=== PATIENT | female | born 2000 | race Caucasian/White ===

== ENCOUNTER 2021-06-21 05:53 | Inpatient (IN) ==
[2021-06-21] MEDS ORDERED: Lidocaine 1% 20 ML MDV INFILT PRN (06:02)
[2021-06-21] MEDS ORDERED: *HR* Nalbuphine 10 MG/ML AMPUL IV PRN (06:02)
[2021-06-21] MEDS ORDERED: Famotidine 20 MG/2 ML VIAL IVP PRN (06:02)
[2021-06-21] MEDS ORDERED: Naloxone 0.4 MG/ML INJ IVP PRN ×2 (06:02→09:59)
[2021-06-21] MEDS ORDERED: Metoclopramide 10 MG/2 ML VIAL IVP PRN (06:02)
[2021-06-21] MEDS ORDERED: EPHEDrine 50 MG/ML VIAL IVP PRN ×2 (06:13→09:59)
[2021-06-21] MEDS ORDERED: Epidural Premix (fent/bupiv) 110 ML EP SCH ×2 (06:15→10:00)
[2021-06-21] MEDS ORDERED: miSOPROStoL 25 MCG TABLET PO SCH (07:00)
[2021-06-21 07:15] LABS: Basophils % 0.3 %; Eosinophils # 0.1 K/mcL (0.0-0.6); Eosinophils % 0.5 %; Hematocrit 38.8 % (35.3-44.9); Hemoglobin 12.6 g/dL (11.5-15.4); Immature Granulocytes % 0.4 % (0-4); Lymphocytes # 1.4 K/mcL (0.6-4.6); Lymphocytes % 12.9 %; Mean Corpuscular HGB Conc 32.5 g/dL (31.6-35.5); Mean Corpuscular Hemoglobin 26.4 pg (28.0-33.3); Mean Corpuscular Volume 81.2 fL (83.0-100.0); Mean Platelet Volume 11.3 fL (9.4-12.4); Monocytes # 0.6 K/mcL (0.0-1.3); Neutrophils # 8.6 K/mcL (1.6-8.9); Platelet Count 193 K/mcL (140-400); Red Blood Count 4.78 M/mcL (3.82-4.97); Red Cell Distribution Width 13.9 % (11.5-14.5); Segmented Neutrophils % 79.9 %; White Blood Count 10.7 K/mcL (4.3-11.1)
[2021-06-21 07:44] LABS: Influenza A PCR Negative (Negative); Influenza B PCR Negative (Negative); Resp. Syncytial Virus PCR Negative (Negative)
[2021-06-21 07:45] LABS: SARS-CoV-2 by PCR (In House) Negative (Negative)
[2021-06-21] MEDS: Ringers Solution, Lactated 1,000 ML IVC SCH ×4 (07:48→17:27)
[2021-06-21 09:27] LABS: Amphetamine Screen,Urine Negative ng/mL (Cutoff=1000); Barbiturate Screen,Urine Negative ng/mL (Cutoff=200); Benzodiazepines Screen,Urine Negative ng/mL (Cutoff=200); Cannabinoid Screen,Urine Negative ng/mL (Cutoff = 50); Cocaine Screen,Urine Negative ng/mL (Cutoff= 300); Opiate Screen,Urine Negative ng/mL (Cutoff=300); Phencyclidine Screen,Urine Negative ng/mL (Cutoff=25)
[2021-06-21] MEDS ORDERED: *HR* FentaNYL (PF) 100 MCG/2 ML VIAL EP ONE (09:59)
[2021-06-21] MEDS ORDERED: Ropivacaine/PF 0.2% 20 ML VIAL EP ONE (09:59)
[2021-06-21] MEDS ORDERED: Ondansetron 4 MG/2 ML VIAL IVP PRN (09:59)
[2021-06-21] MEDS ORDERED: Ropivacaine/PF 0.2% 20 ML VIAL ONE (11:52)
[2021-06-22] MEDS ORDERED: Lanolin 7 G OINT...G. TP PRN (01:26)
[2021-06-22] MEDS ORDERED: Benzocaine/Menthol 56 GM AEROSOL SPRAY TP PRN (01:26)
[2021-06-22] MEDS ORDERED: Oxytocin 20 units/ LR 1000 mL 20 UNIT/1,000 ML BAG IVC SCH (01:26)
[2021-06-22] MEDS ORDERED: Ondansetron ODT 4 MG TAB.RAPDIS SL PRN (01:26)
[2021-06-22] MEDS: Ibuprofen 600 MG TABLET PO SCH ×2 (02:49→17:03)
[2021-06-22] MEDS: Acetaminophen 325 MG TABLET PO SCH ×3 (02:49→17:03)
[2021-06-22 08:52] VITALS: O2SAT 98
[2021-06-22] MEDS ORDERED: Prenatal Vit/FA 1 EACH TABLET PO SCH (09:00)
[2021-06-22 15:35] VITALS: BP 103/57; PULSE 82; TEMP 97.8
== END 2021-06-22 19:15 | disposition home or self-care (01) | DRG 806 ==
LOC: 1NENULAB 05:53 → 1NENUOBS 06-22 03:39
PROVIDERS: ADMIT Registered Nurse; ATTEND Registered Nurse